=== PATIENT | female | born 1950 | race Caucasian/White ===

== ENCOUNTER 2017-08-09 20:59 | Emergency (ER) | payer MEDICARE ==
--- NOTE | 2017-08-09 21:38 | UC ---
Ear Complaint HPI - HPI Summary HPI Summary: patient has recovering cold symtpoms, pain and decreased hearing in the left ear - History of Current Complaint Chief Complaint: UCGeneralIllness Stated Complaint: LEFT EAR ACHE/COLD SYMPTOMS Time Seen by Provider: 08/09/17 21:30 - Allergies/Home Medications Allergies/Adverse Reactions: Allergies Allergy/AdvReac Type Severity Reaction Status Date / Time Codeine Allergy Vomiting Verified 08/09/17 21:21 Latex Allergy Blisters Verified 08/09/17 21:21 Morphine Allergy Vomiting Verified 08/09/17 21:21 Penicillins Allergy Vomiting Verified 08/09/17 21:21 Home Medications: Home Medications Aspirin [Aspirin 81 MG TAB] 81 mg BEDTIME 08/09/17 [History Confirmed 08/09/17] Nebivolol HCl [Bystolic] 5 mg PO QPM 08/09/17 [History Confirmed 08/09/17] Simvastatin [Zocor 40 MG (NF)] 40 mg PO QPM 08/09/17 [History Confirmed 08/09/17 ] PMH/Surg Hx/FS Hx/Imm Hx - Surgical History Surgical History: Yes Surgery Procedure, Year, and Place: 2X HIP REPLACEMENT. APPENDIX. HERNIA. TUMORS REMOVED FROM THYROID. HYSTERECTOMY - Social History Alcohol Use: None Substance Use Type: None Smoking Status (MU): Never Smoked Tobacco - Immunization History Most Recent Influenza Vaccination: not yet 2017 Review of Systems All Other Systems Reviewed And Are Negative: Yes Physical Exam Triage Information Reviewed: Yes Appearance: Well-Appearing, Well-Nourished, Pain Distress Vital Signs: Initial Vital Signs Temp 98.3 F 08/09/17 21:23 Pulse 65 08/09/17 21:23 Resp 16 08/09/17 21:23 BP 138/68 08/09/17 21:23 Pulse Ox 100 08/09/17 21:23 Vital Signs Reviewed: Yes Eye Exam: Normal ENT: Positive: Pharynx normal, TM bulging - clear fluid behind ear, Dental Exam: Normal Neck exam: Normal Respiratory Exam: Normal Respiratory: Positive: Chest non-tender, Lungs clear, Normal breath sounds Cardiovascular Exam: Normal Cardiovascular: Positive: RRR, No Murmur, Pulses Normal Abdominal Exam: Normal Abdomen Description: Positive: Nontender, No Organomegaly, Soft Bowel Sounds: Positive: Present Musculoskeletal Exam: Normal Neurological Exam: Normal Psychological Exam: Normal Skin Exam: Normal Ear Complaint Course/Dx - Course Course Of Treatment: hx obtained, exam performed ,meds reviewed, treated for serous otitis - Differential Dx/Diagnosis Differential Diagnosis/HQI/PQRI: Cellulitis, Otitis Externa, Otitis Media, URI Provider Diagnoses: serous otitis left ear Discharge - Discharge Plan Condition: Stable Disposition: HOME Prescriptions: predniSONE TAB* [Deltasone TAB*] 40 mg PO DAILY #14 tab Patient Education Materials: Serous Otitis Media (ED) Referrals: Sanju Issa MD [Primary Care Provider] - Additional Instructions: 1.Take the medication as prescribed. 2. take a daily antihistamine for the next 3 weeks 3. Warm compresses to the left ear and neck. 4. Follow up if you develop worsening symptoms
[2017-08-09 21:43] VITALS: BP 138/68
== END 2017-08-09 21:52 | disposition home or self-care (01) ==
LOC: UCCORT 20:59
DX: H65.92 Unspecified nonsuppurative otitis media, left ear (principal); Z88.5 Allergy status to narcotic agent; Z88.0 Allergy status to penicillin; Z91.040 Latex allergy status
CPT/HCPCS: 99212; G0463